=== PATIENT | female | born 1940 ===

== ENCOUNTER 2023-05-29 06:13 | Inpatient (IN) | payer OTHER ==
[~2023-05-29] VITALS: Ht 152.4 cm; Wt 59.0 kg
[~2023-05-29 06:13] MED LIST: ACID REDUCER20 M1 PO; AVAPRO300 MG PO; CRESTOR10 MG PO; FOSAMAX70 MG PO; HORIZANT600 MG PO; HYDROCHLOROTH12.5 MG PO; LEVOTHYROXINE25 MCG PO; MONTELUKAST SOD10 MG PO; NORVASC5 MG PO; VIVLODEX5 MG PO; ZANAFLEX2 M1 PO; ZOLOFT50 MG PO
[2023-05-30] MEDS ORDERED: HYOSCYAMINE0.125 M1 SL (11:56)
[2023-05-30] MEDS ORDERED: LEVOFLOXACIN500 MG PO (11:57)
[2023-05-30] MEDS ORDERED: TRAM1TAB98 PO (11:57)
== END 2023-05-30 12:29 | disposition home or self-care (01) | DRG 334 ==
LOC: CIR.AMB 06:13 → SURH 10:54
PROVIDERS: ADMIT Surgery; ATTEND Surgery
PROC: 0DBNFZZ Excision of Sigmoid Colon, Via Natural or Artificial Opening With Percutaneous Endoscopic Assistance (ICD-10-PCS; 2023-05-29)
PROC: 0DUR0JZ Supplement Anal Sphincter with Synthetic Substitute, Open Approach (ICD-10-PCS; 2023-05-29)
PROC: 3E0T3BZ Introduction of Anesthetic Agent into Peripheral Nerves and Plexi, Percutaneous Approach (ICD-10-PCS; 2023-05-29)
PROC: 0DBP0ZZ Excision of Rectum, Open Approach (ICD-10-PCS; principal; 2023-05-29 09:30)
DX: K62.3 Rectal prolapse (principal); R15.9 Full incontinence of feces; Z20.822 Contact with and (suspected) exposure to COVID-19

== ENCOUNTER 2025-01-20 10:22 | Inpatient (IN) | payer OTHER ==
[~2025-01-20] VITALS: Ht 152.4 cm; Wt 59.0 kg
[~2025-01-20 10:22] MED LIST changes: +HYOSCYAMINE0.125 M1 SL; +LEVOFLOXACIN500 MG PO; +TRAM1TAB98 PO
[2025-01-27] MEDS ORDERED: METRONIDAZOLE/SODIUM CHLORIDE 500 MG/100 ML PIGGYBACK IV ONE ×3 (08:17→18:45)
[2025-01-27] MEDS ORDERED: CEFTRIAXONE SODIUM 2,000 MG VIAL ONE ×2 (08:17→10:18)
[2025-01-27] MEDS ORDERED: BUPIVACAINE HCL/Mpf 0.5% 10ML VIAL ONE (10:17)
[2025-01-27] MEDS ORDERED: POVIDONE-IODINE 118 ML BOTT TOP ONE ×2 (10:17→11:35)
[2025-01-27] MEDS ORDERED: LIDOCAINE HCL 1%/EPINEPHRINE 20ML VIAL IJ ONE ×2 (10:17→18:45)
[2025-01-27] MEDS ORDERED: DIBUCAINE 30 GM TUBE ONE (10:17)
[2025-01-27] MEDS ORDERED: HEMOSTATIC MATRIX 1 KIT KIT TOP ONE ×2 (10:18→18:45)
[2025-01-27] MEDS ORDERED: CIPROFLOXACIN IN 5 % DEXTROSE 400 MG/200 ML PIGGYBAG IV SCH (12:21)
[2025-01-27] MEDS ORDERED: OxyCODONE HCL 5 MG TABLET (ROXICODONE) PO PRN (12:30)
[2025-01-27] MEDS ORDERED: RINGERS SOLUTION,LACTATED 1,000 ML IV SCH (12:30)
[2025-01-27] MEDS ORDERED: ONDANSETRON HCL 2 MG/ML VIAL IV PRN (12:30)
[2025-01-27] MEDS ORDERED: MORPHINE SULFATE 4 MG/ML CARTRIDGE IV PRN (12:30)
[2025-01-27] MEDS ORDERED: MORPHINE SULFATE 4 MG/ML VIAL IV ONE ×2 (12:45→13:00)
[2025-01-27] MEDS ORDERED: METRONIDAZOLE/SODIUM CHLORIDE 500 MG/100 ML PIGGYBACK IV SCH (13:00)
[2025-01-27] MEDS ORDERED: HYOSCYAMINE SULFATE 0.125 MG TAB.SUBL SL SCH (13:00)
[2025-01-27] MEDS ORDERED: ACETAMINOPHEN 500 MG GEL..CAP PO ONE (16:33)
[2025-01-27] MEDS ORDERED: TAMSULOSIN HCL 0.4 MG CAP PO ONE (16:33)
[2025-01-27] MEDS ORDERED: HYOSCYAMINE SULFATE 0.125 MG TAB.SUBL ONE (16:33)
[2025-01-27] MEDS ORDERED: GABAPENTIN 300 MG CAPSULE PO ONE (16:33)
[2025-01-27] MEDS ORDERED: TAMSULOSIN HCL 0.4 MG CAP PO SCH (17:00)
[2025-01-27] MEDS ORDERED: GABAPENTIN 300 MG CAPSULE PO SCH (17:00)
[2025-01-27] MEDS ORDERED: LACTOBACILLUS ACIDOPHILUS 1 CAP CAP PO SCH (17:00)
[2025-01-27] MEDS ORDERED: POLYETHYLENE GLYCOL 3350 17 GM BLIST.PACK PO SCH (17:00)
[2025-01-27] MEDS ORDERED: ACETAMINOPHEN 500 MG GEL..CAP PO SCH (18:00)
[2025-01-27] MEDS ORDERED: BUPIVACAINE HCL 30 ML VIAL IJ ONE (18:45)
[2025-01-27] MEDS ORDERED: CEFTRIAXONE SODIUM 2,000 MG VIAL IV ONE (18:45)
[2025-01-27] MEDS ORDERED: DIBUCAINE 30 GM TUBE RECTAL ONE (18:45)
[2025-01-27] MEDS ORDERED: FAMOTIDINE/PF 20 MG/2 ML VIAL IV PUSH SCH (21:00)
[2025-01-27 22:23] VITALS: BP 84/50; O2SAT 98
[2025-01-28 01:31] VITALS: BP 94/57; O2SAT 96
[2025-01-28] MEDS ORDERED: INTESTINEX680 M1 PO (05:39)
[2025-01-28] MEDS ORDERED: CELECOXIB200 MG PO (05:40)
[2025-01-28] MEDS ORDERED: LEVOTHYROXINE SODIUM 25 MCG TABLET PO SCH (06:00)
[2025-01-28] MEDS ORDERED: AMOX1TAB5 PO (07:27)
[2025-01-28 08:01] LABS: ALBUMIN 2.5 gm/dL (3.4-5.0); CALCIUM 8.5 mg/dL (8.5-10.1); CREATININE SERUM 1.28 mg/dL (0.55-1.02); GFR 39.92; PHOSPHOROUS 2.7 mg/dL (2.5-4.9); POTASSIUM 3.69 mEq/L (3.5-5.1)
[2025-01-28 08:20] LABS: HEMATOCRIT 32.2 % (36.0-45.00); HEMOGLOBIN 10.7 g/dL (12.0-15.00); MEAN CELL VOLUME 93.6 fL (80.00-100.00); MEAN CORPUSCULAR HEMOGLOBIN 31.2 pg (27.00-32.0); MEAN CORPUSCULAR HGB CONC 33.3 g/dl (32.0-36.0); PLATELET COUNT 196 K/uL (150-450); RED BLOOD COUNT 3.44 M/uL (4.00-6.00); RED CELL DISTRIBUTION WIDTH 13.9 % (11.5-14.5)
[2025-01-28 08:28] LABS: MAGNESIUM 1.2 mg/dL (1.8-2.4)
[2025-01-28] MEDS ORDERED: AMLODIPINE BESYLATE 5 MG TABLET PO SCH (09:00)
[2025-01-28] MEDS ORDERED: IRBESARTAN 300 MG TABLET PO SCH (09:00)
[2025-01-28 09:23] VITALS: BP 106/62; O2SAT 96
[2025-01-28] MEDS ORDERED: ENOXAPARIN SODIUM 40 MG/0.4 ML SYRINGE SUBCUTANEO SCH (17:00)
[2025-01-29] MEDS ORDERED: ENOXAPARIN SODIUM 40 MG/0.4 ML SYRINGE SUBCUTANEO SCH (09:00)
== END 2025-01-28 12:24 | disposition home or self-care (01) | DRG 329 ==
LOC: ADM 10:30 → O/R 01-27 04:52 → EDSTATUS 01-27 10:30 → SURH 01-27 10:30 → CIR.AMB 01-27 10:30 → SURH 01-27 13:45
PROVIDERS: ADMIT Surgery; ATTEND Surgery
PROC: 0DBP0ZZ Excision of Rectum, Open Approach (ICD-10-PCS; 2025-01-27)
PROC: 0DUR0JZ Supplement Anal Sphincter with Synthetic Substitute, Open Approach (ICD-10-PCS; 2025-01-27)
PROC: 3E0T3BZ Introduction of Anesthetic Agent into Peripheral Nerves and Plexi, Percutaneous Approach (ICD-10-PCS; 2025-01-27)
PROC: 0DTNFZZ Resection of Sigmoid Colon, Via Natural or Artificial Opening With Percutaneous Endoscopic Assistance (ICD-10-PCS; principal; 2025-01-27 13:45)
DX: K62.3 Rectal prolapse (principal); N18.6 End stage renal disease; K62.5 Hemorrhage of anus and rectum; R15.9 Full incontinence of feces; M62.89 Other specified disorders of muscle; K59.00 Constipation, unspecified; E03.9 Hypothyroidism, unspecified; I10 Essential (primary) hypertension; E11.9 Type 2 diabetes mellitus without complications; K62.89 Other specified diseases of anus and rectum

== ENCOUNTER 2025-08-04 12:00 | Inpatient (IN) | payer OTHER ==
[~2025-08-04] VITALS: Ht 152.4 cm; Wt 0.5 kg
[~2025-08-04 12:00] MED LIST changes: +AMOX1TAB5 PO; +CELECOXIB200 MG PO; +INTESTINEX680 M1 PO
[2025-08-04 14:10] VITALS: BP 131/72
[2025-08-11] MEDS ORDERED: CEFTRIAXONE SODIUM 2,000 MG VIAL ONE (07:03)
[2025-08-11] MEDS ORDERED: METRONIDAZOLE/SODIUM CHLORIDE 500 MG/100 ML PIGGYBACK IV ONE (07:03)
[2025-08-11] MEDS ORDERED: ONDANSETRON HCL 2 MG/ML VIAL IV PRN (08:45)
[2025-08-11] MEDS ORDERED: RINGERS SOLUTION,LACTATED 1,000 ML IV SCH (08:45)
[2025-08-11] MEDS ORDERED: OxyCODONE HCL 5 MG TABLET (ROXICODONE) PO PRN (08:45)
[2025-08-11] MEDS ORDERED: MORPHINE SULFATE 4 MG/ML CARTRIDGE IV PRN (08:45)
[2025-08-11] MEDS ORDERED: TAMSULOSIN HCL 0.4 MG CAP PO SCH (09:00)
[2025-08-11] MEDS ORDERED: LACTOBACILLUS ACIDOPHILUS 1 CAP CAP PO SCH (09:00)
[2025-08-11] MEDS ORDERED: GABAPENTIN 300 MG CAPSULE PO SCH (09:00)
[2025-08-11] MEDS ORDERED: FAMOTIDINE/PF 20 MG/2 ML VIAL IV PUSH SCH (09:00)
[2025-08-11] MEDS ORDERED: HYOSCYAMINE SULFATE 0.125 MG TAB.SUBL SL SCH (09:00)
[2025-08-11] MEDS ORDERED: POLYETHYLENE GLYCOL 3350 17 GM BLIST.PACK PO SCH (09:08)
[2025-08-11] MEDS ORDERED: ONDANSETRON HCL 2 MG/ML VIAL ONE (11:07)
[2025-08-11] MEDS ORDERED: SINUS CONGST-P1 EACH (11:22)
[2025-08-11] MEDS ORDERED: GABAPENTIN600 MG (11:22)
[2025-08-11] MEDS ORDERED: ACETAMINOPHEN 500 MG GEL..CAP PO SCH (12:00)
[2025-08-11 13:30] VITALS: BP 132/65; O2SAT 95
[2025-08-11 16:00] VITALS: BP 125/79; O2SAT 97
[2025-08-12 00:30] VITALS: BP 103/65; O2SAT 98
[2025-08-12 08:26] VITALS: BP 101/61; O2SAT 95
[2025-08-12 08:29] LABS: BASO % 0.4 % (0.1-1.2); EOS # 0.19 (0.04-0.54); EOS % 1.5 % (0.7-7.0); LYMPH # 2.52 (1.18-3.74); LYMPH % 19.9 % (19.3-53.1); MEAN PLATELET VOLUME 10.60 fl (9.4-12.4); MONO # 1.00 (0.24-0.82); MONO % 7.9 % (4.7-12.5); NEUT # 8.86 (1.56-6.13); NEUT % 69.8 % (34.0-71.1); RED CELL DISTRIBUTION WIDTH 14.9 % (11.6-14.4)
[2025-08-12 08:52] LABS: BUN CREA RATIO 20.0 (7.0-25.0); CREATININE SERUM 1.13 mg/dL (0.55-1.02); GFR 45.98; GLUCOSE FASTING 98.0 mg/dL (65-100); OSMOLALITY SERUM 298.0 MOSM/KG (275-295)
[2025-08-12 16:48] VITALS: BP 116/51; O2SAT 96
[2025-08-12] MEDS ORDERED: ENOXAPARIN SODIUM 40 MG/0.4 ML SYRINGE SUBCUTANEO SCH (17:00)
[2025-08-13 01:18] VITALS: BP 108/60; O2SAT 98
[2025-08-13 07:54] LABS: BASO % 0.5 % (0.1-1.2); EOS # 0.43 (0.04-0.54); EOS % 3.3 % (0.7-7.0); LYMPH # 2.70 (1.18-3.74); LYMPH % 21.0 % (19.3-53.1); MEAN PLATELET VOLUME 10.40 fl (9.4-12.4); MONO # 1.03 (0.24-0.82); MONO % 8.0 % (4.7-12.5); NEUT # 8.60 (1.56-6.13); NEUT % 66.7 % (34.0-71.1); RED CELL DISTRIBUTION WIDTH 14.5 % (11.6-14.4)
[2025-08-13 08:00] VITALS: BP 109/64; O2SAT 95
[2025-08-13 08:01] LABS: BUN CREA RATIO 16.0 (7.0-25.0); CREATININE SERUM 1.01 mg/dL (0.55-1.02); GFR 52.35; GLUCOSE FASTING 99.0 mg/dL (65-100); OSMOLALITY SERUM 288.0 MOSM/KG (275-295)
[2025-08-13] MEDS ORDERED: ENOXAPARIN SODIUM 40 MG/0.4 ML SYRINGE SUBCUTANEO SCH (09:00)
[2025-08-13] MEDS ORDERED: METRONIDAZOLE/SODIUM CHLORIDE 500 MG/100 ML PIGGYBACK IV SCH (11:22)
[2025-08-13] MEDS ORDERED: CIPROFLOXACIN IN 5 % DEXTROSE 400 MG/200 ML PIGGYBAG IV NR (12:00)
[2025-08-13 13:46] LABS: BASO % 0.3 % (0.1-1.2); EOS # 0.32 (0.04-0.54); EOS % 2.1 % (0.7-7.0); LYMPH # 2.53 (1.18-3.74); LYMPH % 16.6 % (19.3-53.1); MEAN PLATELET VOLUME 11.10 fl (9.4-12.4); MONO # 1.15 (0.24-0.82); MONO % 7.6 % (4.7-12.5); NEUT # 11.08 (1.56-6.13); NEUT % 72.9 % (34.0-71.1); RED CELL DISTRIBUTION WIDTH 14.6 % (11.6-14.4)
[2025-08-13 16:00] VITALS: BP 123/69; O2SAT 100
[2025-08-13] MEDS ORDERED: GABAPENTIN 300 MG CAPSULE PO SCH (17:00)
[2025-08-13] MEDS ORDERED: ZINC OXIDE 30 GM,NYSTATIN 30 GM,SILVER SULFADIAZINE 50 GM TOP SCH (17:00)
[2025-08-13] MEDS ORDERED: CIPROFLOXACIN IN 5 % DEXTROSE 400 MG/200 ML PIGGYBAG IV SCH (21:00)
[2025-08-13 22:00] VITALS: BP 125/69; O2SAT 100
[2025-08-14 01:05] VITALS: BP 124/72; O2SAT 97
[2025-08-14] MEDS ORDERED: LEVOTHYROXINE SODIUM 25 MCG TABLET PO SCH (06:00)
[2025-08-14 06:42] LABS: BASO % 0.4 % (0.1-1.2); EOS # 0.43 (0.04-0.54); EOS % 3.9 % (0.7-7.0); LYMPH # 2.55 (1.18-3.74); LYMPH % 23.4 % (19.3-53.1); MEAN PLATELET VOLUME 10.60 fl (9.4-12.4); MONO # 1.06 (0.24-0.82); MONO % 9.7 % (4.7-12.5); NEUT # 6.77 (1.56-6.13); NEUT % 62.1 % (34.0-71.1); RED CELL DISTRIBUTION WIDTH 14.1 % (11.6-14.4)
[2025-08-14 09:22] VITALS: BP 121/62; O2SAT 98
[2025-08-14] MEDS ORDERED: INTESTINEX680 M1 PO (13:12)
[2025-08-14] MEDS ORDERED: MIRALAX510 GM PO (13:13)
[2025-08-14] MEDS ORDERED: INTEGRA F CAPS1 EACH PO (13:13)
== END 2025-08-14 14:37 | disposition home or self-care (01) | DRG 330 ==
LOC: ADM 12:00 → EDSTATUS 12:00 → SURH 08-11 07:00 → O/R 08-11 07:00 → SURH 08-11 11:27
PROVIDERS: Internal Medicine; Surgery; ADMIT Surgery; ATTEND Surgery
PROC: 0DNW4ZZ Release Peritoneum, Percutaneous Endoscopic Approach (ICD-10-PCS; 2025-08-11)
PROC: 0DQP4ZZ Repair Rectum, Percutaneous Endoscopic Approach (ICD-10-PCS; principal; 2025-08-11 07:00)
DX: K62.3 Rectal prolapse (principal); K62.5 Hemorrhage of anus and rectum; K66.0 Peritoneal adhesions (postprocedural) (postinfection); R15.9 Full incontinence of feces; N81.84 Pelvic muscle wasting; G62.89 Other specified polyneuropathies; G47.33 Obstructive sleep apnea (adult) (pediatric); I10 Essential (primary) hypertension; E03.9 Hypothyroidism, unspecified